=== PATIENT | female | born 1995 | race American Indian/Alaskan Native ===

== ENCOUNTER 2017-09-20 20:29 | Outpatient (CLI) | payer OTHER ==
[2017-09-20] MEDS ORDERED: SYNTHROID50 MCG PO (21:07)
[2017-09-20] MEDS ORDERED: PRENATAL 19 TA1 EACH PO (21:07)
== END 2017-09-22 08:11 | disposition home or self-care (01) ==
LOC: OBS/DEL 20:29
DX: O76 Abnormality in fetal heart rate and rhythm complicating labor and delivery (principal); O60.03 Preterm labor without delivery, third trimester; Z34.03 Encounter for supervision of normal first pregnancy, third trimester

== ENCOUNTER 2017-10-16 07:05 | Inpatient (IN) | payer OTHER ==
[~2017-10-16] VITALS: Ht 162.6 cm; Wt 183.0 kg
[~2017-10-16 07:05] MED LIST: PRENATAL 19 TA1 EACH PO; SYNTHROID50 MCG PO
== END 2017-10-18 14:24 | disposition home or self-care (01) | DRG 775 ==
LOC: LDR 07:05 → OB/GYN 10-17 00:26
PROC: 10E0XZZ Delivery of Products of Conception, External Approach (ICD-10-PCS; principal; 2017-10-16)
PROC: 10907ZC Drainage of Amniotic Fluid, Therapeutic from Products of Conception, Via Natural or Artificial Opening (ICD-10-PCS; 2017-10-16)
PROC: 0W8NXZZ Division of Female Perineum, External Approach (ICD-10-PCS; 2017-10-16)
PROC: 3E033VJ Introduction of Other Hormone into Peripheral Vein, Percutaneous Approach (ICD-10-PCS; 2017-10-16)
PROC: 4A1HXCZ Monitoring of Products of Conception, Cardiac Rate, External Approach (ICD-10-PCS; 2017-10-16)
DX: O99.824 Streptococcus B carrier state complicating childbirth (principal); Z3A.39 39 weeks gestation of pregnancy; Z37.0 Single live birth